=== PATIENT | female | born 1970 | race Caucasian/White ===

== ENCOUNTER 2021-01-13 09:59 | Emergency (ER) | payer OTHER ==
[~2021-01-13 09:59] MED LIST: AUVI-Q0.1 MG/0.1 SC; BENADRYL25 MG PO; CYCLOBENZAPRINE10 MG PO; MEDROL 4MG DOSEP4 MG PO; PEPCID AC20 MG PO; PHENERGAN25 M1 PO; PREDNISONE 20MG20 MG PO
[2021-01-13] MEDS ORDERED: ZYRTEC10 MG PO (13:21)
[2021-01-13] MEDS ORDERED: ATARAX25 MG PO (13:21)
[2021-01-13] MEDS ORDERED: PREDNISONE 20MG20 MG PO (13:21)
== END 2021-01-13 13:40 | disposition home or self-care (01) ==
LOC: FER 09:59
DX: L50.0 Allergic urticaria (principal); R06.02 Shortness of breath; T39.395A Adverse effect of other nonsteroidal anti-inflammatory drugs [NSAID], initial encounter
CPT/HCPCS: J1200; J2930; J7030

== ENCOUNTER 2021-02-17 01:02 | Emergency (ER) | payer OTHER ==
[~2021-02-17 01:02] MED LIST changes: +ATARAX25 MG PO; +ZYRTEC10 MG PO
== END 2021-02-17 02:56 | disposition home or self-care (01) ==
LOC: FER 01:02
DX: L50.0 Allergic urticaria (principal)
CPT/HCPCS: 93005; J1200; J2930

== ENCOUNTER 2021-09-21 19:27 | Emergency (ER) | payer OTHER ==
[2021-09-21 21:11] LABS: BASOPHIL 0.3 % (0-2); EOSINOPHIL 0.6 % (0-5); HCT 45.5 % (37.0-47.0); HGB 14.9 g/dl (12.5-16.0); LYMPHOCYTE 28.5 % (15-48); MCHC 32.7 g/dL (32.0-36.0); MCV 91.5 fL (78.0-100.0); MONOCYTE 8.2 % (0-12); MPV 9.8 fL (6.0-9.5); NEUTROPHIL 62.1 % (41-80); NRBC 0; PLT 350 K/uL (150-400); RBC 4.97 M/uL (4.20-5.40); RDW 12.4 % (11.5-14.0); WBC 8.6 K/uL (4.0-10.5)
[2021-09-21 21:15] LABS: BILIRUBIN NEGATIVE (NEGATIVE); BLOOD 1+ Ery/uL (NEGATIVE); CLARITY CLEAR (CLEAR); COLOR YELLOW (YELLOW); GLUCOSE (U) NORMAL (NORMAL); LEUKOCYTES NEGATIVE Leu/uL (NEGATIVE); NITRITE NEGATIVE (NEGATIVE); PROTEIN NEGATIVE (NEGATIVE); SPECIFIC GRAVITY 1.025 (1.001-1.030); UROBILINOGEN 0.2 mg/dL (0.2-1.0)
[2021-09-21 21:23] LABS: SQUAMOUS EPITHELIAL CELLS RARE
[2021-09-21 21:34] LABS: ALBUMIN 4.2 g/dL (3.4-5.0); BILIRUBIN - TOTAL 0.8 mg/dL (0.2-1.0); BUN/CREAT RATIO (CALC) 25.4 RATIO; CREATININE 0.63 mg/dL (0.51-0.95); GLOBULIN (CALCULATION) 4.4 g/dL; POTASSIUM 3.7 mmol/L (3.5-5.1); TOTAL PROTEIN 8.6 g/dL (6.4-8.2)
== END 2021-09-22 00:57 | disposition home or self-care (01) ==
LOC: FER 19:27
PROVIDERS: Internal Medicine
DX: R10.31 Right lower quadrant pain (principal); R11.0 Nausea; Z88.6 Allergy status to analgesic agent
CPT/HCPCS: 36415; 80053; 81001; 82150; 83690; 85025; J2270; J2405; J7030; Q9967